=== PATIENT | male | born 1975 | race Caucasian/White ===

== ENCOUNTER 2020-03-26 13:58 | Emergency (ER) | payer BC, OTHER ==
[2020-03-26] MEDS ORDERED: Diphtheria,Pertussis(Acell),Tetanus Vaccine 0.5 ML Syringe IM ONE (14:19)
--- NOTE | 2020-03-26 14:26 | EDM.PDOC ---
ED HPI GENERAL MEDICAL PROBLEM - General Chief Complaint: Bite:Animal, Insect Stated Complaint: question dog versus racoon bit Time Seen by Provider: 03/26/20 14:05 Source of Information: Reports: Patient - History of Present Illness INITIAL COMMENTS - FREE TEXT/NARRATIVE: Pt presents to ER with possible bite to right anterior lloyd States he was breaking up a fight between raccoon and his dog and got hit on anterior lloyd States initially the area was just a bruise and now has a small abrasion to the area Does not think it was a direct bite or puncture Tetanus 5 years ago Onset: Today, Sudden Location: Reports: Lower Extremity, Right Context: Reports: Trauma Right Lower Leg Pain Score (Numeric/FACES): 1 - Related Data Allergies Allergy/AdvReac Type Severity Reaction Status Date / Time No Known Allergies Allergy Verified 03/26/20 13:59 Home Meds: Home Meds . [No Known Home Meds] 03/26/20 [History] Past Medical History - Past Surgical History Musculoskeletal Surgical History: Reports: Other (See Below) Other Musculoskeletal Surgeries/Procedures:: elbow tendon surgery Summer 2019 Social & Family History - Tobacco Use Tobacco Use Status *Q: Never Tobacco User ED ROS GENERAL - Review of Systems Review Of Systems: See Below Skin: Reports: Other (Possible bite wound) ED EXAM, ANIMAL BITE - Physical Exam Exam: See Below Exam Limited By: No Limitations Skin Exam: Other (Small 1 cm abrasion to right anterior lloyd No laceration or puncture wound) Course - Vital Signs Last Recorded V/S: Last Vital Signs Temp 97.9 F 03/26/20 14:04 Pulse 96 03/26/20 14:04 Resp 16 03/26/20 14:04 BP 107/76 03/26/20 14:04 Pulse Ox 96 03/26/20 14:04 - Orders/Labs/Meds Orders: Active Orders 24 hr Category Date Time Status Vaccines to be Administered [RC] PER UNIT ROUTINE Care 03/26/20 14:19 Ordered Meds: Medications Discontinued Medications Generic Name Dose Route Start Last Admin Trade Name Freq PRN Reason Stop Dose Admin Diphtheria/Tetanus/Acell Pertussis 0.5 ml 03/26/20 14:19 Boostrix IM 03/26/20 14:20 .ONCE ONE - Re-Assessments/Exams Free Text/Narrative Re-Assessment/Exam: 03/26/20 14:24 Pt given tdap in ER Pt and family looking for raccoon Will bring it to vet when found Will follow up in clinic Pt given copy of rabies exposure flow sheet Departure - Departure Time of Disposition: 14:30 Disposition: Home, Self-Care 01 Clinical Impression: Animal bite - Discharge Information Instructions: Animal Bite, Adult, [id number] Referrals: Sandy Sahni HUNTER [Primary Care Provider] - Additional Instructions: Follow up in clinic To ER if worse Sepsis Event Note (ED) - Evaluation Sepsis Screening Result: No Definite Risk - Focused Exam Vital Signs: Vital Signs Temp Pulse Resp BP Pulse Ox 03/26/20 14:04 97.9 F 96 16 107/76 96 - My Orders Last 24 Hours: My Active Orders 03/26/20 14:19 Vaccines to be Administered [RC] PER UNIT ROUTINE - Assessment/Plan Last 24 Hours: My Active Orders 03/26/20 14:19 Vaccines to be Administered [RC] PER UNIT ROUTINE
== END 2020-03-26 14:45 | disposition home or self-care (01) ==
LOC: LL.ED 13:58
DX: S80.871A Other superficial bite, right lower leg, initial encounter (principal); Z23 Encounter for immunization; W64.XXXA Exposure to other animate mechanical forces, initial encounter
CPT/HCPCS: 90471; 90715; 99283